=== PATIENT | female | born 1985 | race Caucasian/White ===

== ENCOUNTER 2022-06-25 12:15 | Outpatient (CLI) | payer BC, SELFPAY | END 2022-06-25 12:16 | disposition home or self-care (01) | LOC: FRMREF 06-26 11:24 | PROVIDERS: Visit Provider Nurse Practitioner Family | DX: R39.9 Unspecified symptoms and signs involving the genitourinary system (principal); N39.0 Urinary tract infection, site not specified | CPT/HCPCS: 87086 ==

== ENCOUNTER 2024-08-15 13:05 | Outpatient (CLI) | payer BC, SELFPAY | END 2024-08-15 13:06 | disposition home or self-care (01) | LOC: NFLDREF 08-17 05:32 | PROVIDERS: Visit Provider Physician Assistant | DX: N39.0 Urinary tract infection, site not specified (principal) | CPT/HCPCS: 87086 ==